=== PATIENT | male | born 1955 | race Two or more races ===

== ENCOUNTER 2020-11-07 15:34 | Emergency (ER) | payer OTHER ==
[~2020-11-07] VITALS: Ht 167.6 cm; Wt 95.3 kg
[2020-11-07] MEDS ORDERED: LOSARTAN POTAS100 MG PO (15:46)
[2020-11-07] MEDS ORDERED: DOXAZOSIN MESYLA2 MG PO (15:46)
[2020-11-07] MEDS ORDERED: GABAPENTIN100 M2 PO (15:46)
== END 2020-11-07 17:43 | disposition home or self-care (01) ==
LOC: ER 15:34
DX: R42 Dizziness and giddiness (principal)